=== PATIENT | female | born 1970 | race Caucasian/White ===

== ENCOUNTER 2018-01-09 09:45 | Day surgery (SDC) | payer OTHER ==
[2018-01-09] MEDS ORDERED: HYDROmorphONE 1 MG/5 ML IV SYRINGE IV ×3 (11:30)
[2018-01-09] MEDS ORDERED: DIPHENHYDRAMINE 50 MG INJ IV (11:30)
[2018-01-09] MEDS ORDERED: METOCLOPRAMIDE 10 MG INJ IV (11:30)
[2018-01-09] MEDS ORDERED: MEPERIDINE 25 MG INJ IV (11:30)
[2018-01-09] MEDS ORDERED: FENTAnyl 50 MCG/ML VIAL IV (11:30)
[2018-01-09] MEDS ORDERED: ONDANSETRON 4 MG INJ IV (11:30)
[2018-01-09] MEDS ORDERED: FENTAnyl 50 MCG/ML VIAL (12:18)
[2018-01-09] MEDS ORDERED: SUCCINYLCHOLINE CHLORIDE 100 MG/5 ML SYG IV (12:31)
[2018-01-09] MEDS ORDERED: PROPOFOL 20 ML (12:31)
[2018-01-09] MEDS ORDERED: LIDOCAINE 100 MG SYRINGE (12:31)
[2018-01-09] MEDS ORDERED: CEFAZOLIN 1 GM INJ (12:31)
[2018-01-09] MEDS: BUPIVACAINE 0.25% (MPF) 30 ML INJ (12:46)
[2018-01-09] MEDS: FENTAnyl 50 MCG/ML VIAL IV (13:17)
== END 2018-01-09 14:43 | disposition home or self-care (01) ==
LOC: SDS 09:45
DX: J35.01 Chronic tonsillitis (principal); E66.01 Morbid (severe) obesity due to excess calories
CPT/HCPCS: 42826; 84703; 88304